=== PATIENT | female | born 1960 | race Caucasian/White ===

== ENCOUNTER 2018-11-16 19:41 | Emergency (ER) | payer OTHER ==
--- NOTE | 2018-11-16 20:10 | EDPHY ---
H & P Stated Complaint: LEFT thumb cat bite, rabies UTD, tetnus UTD Time Seen by Provider: 11/16/18 20:09 HPI/ROS: HPI: This is a 58-year-old female who presents with Chief Complaint: LEFT thumb cat bite, rabies UTD, tetnus UTD Location: Left thumb Quality: Cat bite Duration: 1- 2 hr prior to arrival Signs and Symptoms: No bleeding, no radiation, no numbness, no weakness, no tingling, no incontinence, no decreased range of motion, no swelling, no pain, no fever Timing: Acute Severity: [id number] Context: Patient presents with complaints of cat bite to left thumb 1-2 hours prior to arrival while she was working at [employer]. Tetanus is up-to- date. Cat is up-to-date on immunizations including rabies. Allergy to penicillin/Cipro. Denies radiation, discharge, warmth, decreased range of motion, paresthesias. Modifying Factors: Wash with soap and water and chlorhexidine prep Comment: ROS: A comprehensive 10 system review of systems is otherwise negative aside from elements mentioned in the history of present illness. MEDICAL/SURGICAL/SOCIAL HISTORY: Medical history: Depression, migraines Surgical history: Denies Social history: Employed. Nonsmoker CONSTITUTIONAL: Extremely polite and cooperative adult white female, awake and alert, no obvious distress HEENT: Atraumatic and normocephalic. NECK: supple, no midline tenderness Cardiovascular: Normal S1/S2, regular rate, regular rhythm, without murmur rub or gallop. PULMONARY/CHEST: Symmetrical and nontender. Clear to auscultation bilaterally. Good air movement. No accessory muscle usage. ABDOMEN: Soft, nondistended, nontender. EXTREMITIES: 2/2 pulses, strength 5/5, left thumb shows 2 linear superficial puncture cat bites around the DI P joint. No surrounding erythema, discharge, warmth. DIP/PIP/MCP flexion/extension intact with good light touch sensation. no deformities, no clubbing, no cyanosis or edema. NEUROLOGICAL: no focal neuro deficits. GCS 15. Light touch sensation intact. SKIN: Warm and dry, no erythema. no rash. Good capillary refill. Source: Patient Exam Limitations: No limitations - Personal History Current Tetanus/Diphtheria Vaccine: Yes Current Tetanus Diphtheria and Acellular Pertussis (TDAP): Yes - Medical/Surgical History Hx Asthma: No Hx Chronic Respiratory Disease: No Hx Diabetes: No Hx Cardiac Disease: No Hx Renal Disease: No Hx Cirrhosis: No Hx Alcoholism: No Hx HIV/AIDS: No Hx Splenectomy or Spleen Trauma: No Other PMH: depressions, migraines - Social History Smoking Status: Never smoked Constitutional: Initial Vital Signs Temperature (C) 37.1 C 11/16/18 19:44 Heart Rate 69 11/16/18 19:44 Respiratory Rate 20 11/16/18 19:44 Blood Pressure 143/104 H 11/16/18 19:44 O2 Sat (%) 98 11/16/18 19:44 O2 Delivery Mode Room Air Allergies/Adverse Reactions: ciprofloxacin Allergy (Verified 11/16/18 19:42) Penicillins Allergy (Verified 06/02/13 20:29) Home Medications: Medication Instructions Recorded No Medications [No Meds] 06/02/13 ALPRAZolam [Xanax 0.25 MG (*)] 11/16/18 Doxycycline Hyclate 100 mg PO BID 14 Days capsule 11/16/18 Escitalopram Oxalate [Lexapro 10 11/16/18 MG] Ondansetron Odt [Zofran Odt 4 mg 11/16/18 (*)] Sumatriptan Succinate [IMITREX] 11/16/18 Tylenol #3 (*) 11/16/18 valACYclovir [Valtrex (*)] 11/16/18 Medical Decision Making ED Course/Re-evaluation: Tetanus status is up-to-date. No indication for rabies prophylaxis to be given Soaked in a solution of 50/50 of Betadine and normal saline. Scrubbed copiously Bacitracin and clean sterile dressing applied Verbal and written wound care instructions provided Allergy to penicillin and Cipro. Prescription for doxycycline given No signs of neurovascular compromise/tenting of skin/compartment syndrome/ extremities and joints examined above and below area of concern and are neurovascularly intact/tendon injury. This patient was seen under the supervision of my primary supervising physician. I evaluated care for this patient independently. Differential Diagnosis: Differential diagnosis includes but is not limited to cat bite, puncture wound, foreign body, nerve injury, tendon injury, cellulitis. - Data Points Medications Given: Discontinued Medications Doxycycline Hyclate (Vibramycin 100 Mg Prepack#2) 1 btl [employer] [facility] Stop: 11/16/18 20:18 Last Admin: 11/16/18 20:34 Dose: 1 btl Departure - Departure Disposition: Home, Routine, Self-Care Clinical Impression: Cat bite of finger Qualifiers: Encounter type: initial encounter Qualified Code(s): S61.259A - Open bite of unspecified finger without damage to nail, initial encounter Condition: Good Instructions: Animal Bite (ED), Cellulitis (ED) Additional Instructions: Keep the dressing dry and in place for 48 hours. After 48 hours, you may remove the dressing; wash the site daily with mild soap and water; then pat dry. Take Tylenol 650 mg every 4 hours and/or Ibuprofen 600 mg every 8 hours with food as needed for pain. Take antibiotic as directed. Do not skip a dose. Return to the ER immediately if you experience redness, red streaks, have fevers /chills, flu like symptoms, limited range of motion, or any other symptoms that concern you. Referrals: NATALIIA RADFORD [Primary Care Provider] - As per Instructions Prescriptions: Doxycycline Hyclate 100 mg PO BID 14 Days capsule
[2018-11-16] MEDS ORDERED: DOXYCYCLINE 100 MG PREPACK#2 BTL TAKEHOME ONE (20:17)
[2018-11-16 21:21] VITALS: BP 137/95
== END 2018-11-16 21:21 | disposition home or self-care (01) ==
DX: S61.052A Open bite of left thumb without damage to nail, initial encounter (principal); W55.01XA Bitten by cat, initial encounter; Y92.239 Unspecified place in hospital as the place of occurrence of the external cause; Y93.K9 Activity, other involving animal care; Y99.9 Unspecified external cause status